=== PATIENT | female | born 1990 | race Two or more races ===

== ENCOUNTER 2023-12-21 18:03 | Emergency (ER) | payer OTHER ==
[~2023-12-21] VITALS: Ht 162.6 cm; Wt 88.0 kg
[2023-12-21] MEDS: LORAZEPAM 1 MG TABLET PO ONE (21:00)
[2023-12-21] MEDS ORDERED: LORAZEPAM 1 MG TABLET ONE (21:04)
[2023-12-21] MEDS ORDERED: LORA-258 PO (21:18)
[2023-12-21 21:55] VITALS: BP 122/66; TEMP 97.9; O2SAT 98
== END 2023-12-21 21:55 | disposition home or self-care (01) ==
LOC: ER 18:11
DX: F41.0 Panic disorder [episodic paroxysmal anxiety] (principal); Z79.899 Other long term (current) drug therapy